=== PATIENT | male | born 1965 | race Caucasian/White ===

== ENCOUNTER 2021-01-10 04:58 | Inpatient (IN) | payer BC ==
[2021-01-10] MEDS ORDERED: Lactated Ringers 1,000 ML IV SCH (08:00)
[2021-01-10] MEDS ORDERED: Albuterol/Ipratropium 3.0-0.5 MG/3 ML Neb Soln NEB PRN (08:00)
[2021-01-10] MEDS ORDERED: Morphine 2 MG/ML SYRINGE IVPUSH PRN (08:00)
[2021-01-10] MEDS ORDERED: Ondansetron 4 MG/2 ML SDV IVPUSH PRN (08:00)
[2021-01-10] MEDS ORDERED: Acetaminophen 325 MG Tab PO PRN (08:00)
[2021-01-10] MEDS ORDERED: Sodium Chloride 0.9% 2.5 ML Syringe FLUSH PRN (08:00)
[2021-01-10] MEDS ORDERED: 50% Dextrose in Water 50 ML Syringe IVPUSH PRN (08:05)
[2021-01-10] MEDS ORDERED: Glucagon,Human Recombinant 1 MG Vial IM PRN (08:05)
--- NOTE | 2021-01-10 08:13 | PCM.HP.2 ---
H&P History of Present Illness - General Date of Service: 01/10/21 Admit Problem/Dx: Admission Diagnosis/Problem Admission Diagnosis/Problem LLE cellulitis Source of Information: Patient History Limitations: Reports: No Limitations - History of Present Illness Initial Comments - Free Text/Narative: This 56-year-old male with past medical history of CHF, MS, CAD, sleep apnea with CPAP, type 2 diabetes and morbid obesity presented to the hospital in [place] with acute onset of fevers chills body aches and generalized fatigue. He rated pain 8 out of 10. He had a dental extraction performed on 01/04/2021. Patient reports he started having fevers chills and body aches in 01/09/2021 around 6:00 in the evening. He sought out immediate medical evaluation as he has had this in the past when he develops cellulitis. He reports he did not notice any increased redness or swelling to his lower extremities. He does report that he is supposed to see infectious disease doctor Dr. Delgado at [facility] tomorrow due to recurrent cellulitis in his left lower extremity. He denies any recent injury to left lower extremity. Denies any other skin concerns or open sores. He denies any chest pain or shortness of breath. No abdominal pain. Does report mild fevers and chills at home fevers have been subjective has not checked his temperature. He denies any nausea vomiting. He reports he is tired as he has not slept since last evening. He reports he has been eating and drinking fine at home. Denies any abdominal pain. No urinary concerns. He denies any alcohol use recreational drug use or tobacco use. In the ER in [place] mild leukocytosis noted 11,000 hemoglobin 15.6 hematocrit 47.3. Platelet count 172,000. Neutrophil count 89.5. Sodium 141 potassium 3.9 BUN 29 creatinine 1.6 which appears to be patient's baseline. Lactic acid 1.7 troponin negative UA negative Covid and influenza swab negative. Chest x-ray report pending. EKG normal sinus rhythm heart rate 99 no change from previous EKG on 08/17/2020. No acute ischemic changes noted. Patient was treated with approximately 3 L of LR IV fluids blood cultures obtained and he was treated empirically with Rocephin. Due to bed availability he was unable to be admitted in [place] patient denied transfer to other facilities but was willing to come to [place]. Patient transferred here via EMS. Upon arrival to our unit blood pressure stable 122/77 heart rate 9692% on room air 18 respirations. Hypotension noted in [place] blood pressure 99/55 map of 69. - Related Data Allergies/Adverse Reactions: Allergies Allergy/AdvReac Type Severity Reaction Status Date / Time No Known Allergies Allergy Verified 11/07/20 00:38 MDT Home Medications: Home Meds Dulaglutide [Trulicity] 0.5 ml SQ WEEKLY 11/20/19 [History] Empagliflozin [Jardiance] 1 tab PO DAILY 11/20/19 [History] Fenofibric Acid (Choline) [Fenofibric Acid] 1 cap PO DAILY 11/20/19 [History] Metoprolol Tartrate 25 mg PO DAILY 11/20/19 [History] Pantoprazole [ProTONIX] 40 mg PO DAILY 11/20/19 [History] SUMAtriptan [Imitrex] 50 mg PO DAILY PRN 11/20/19 [History] atorvaSTATin [Lipitor] 20 mg PO BEDTIME 11/20/19 [History] metFORMIN HCl [Metformin HCl] 1,000 mg PO BID 11/20/19 [History] Furosemide 2 tab PO BID 08/17/20 [History] Multivitamin 1 tab PO DAILY 08/17/20 [History] Ubidecarenone/Vitamin E [Co Q-10 50 MG Softgel] 1 cap PO DAILY 08/17/20 [History] Hydrocodone/Acetaminophen [Hydrocodone-Acetamin 5-325 mg] 1 each PO Q6HR PRN #10 tab 11/07/20 [Rx] Past Medical History HEENT History: Reports: Allergic Rhinitis Cardiovascular History: Reports: CAD, Heart Failure, High Cholesterol Other Cardiovascular History: NSTEMI, Hypokalemia Respiratory History: Reports: Sleep Apnea Other Respiratory History: Uses CPAP Gastrointestinal History: Reports: GERD Other Gastrointestinal History: Epigastric pain, Right upper quadrant pain Genitourinary History: Reports: Chronic Renal Insuffiency Other Genitourinary History: Chronic Kidney Disease III COMPOUNDING SCALER History: Reports: None Musculoskeletal History: Reports: Osteoarthritis, Other (See Below) Other Musculoskeletal History: Chronic knee pain, left plantar fascitis, left carpal tunnel syndrome Neurological History: Reports: Migraines Psychiatric History: Reports: None Endocrine/Metabolic History: Reports: Diabetes, Type II, Obesity/BMI 30+ Hematologic History: Reports: None Immunologic History: Reports: None Oncologic (Cancer) History: Reports: None Dermatologic History: Reports: Cellulitis Other Dermatologic History: Rash - Infectious Disease History Infectious Disease History: Reports: Chicken Pox - Past Surgical History Head Surgeries/Procedures: Reports: None HEENT Surgical History: Reports: None Cardiovascular Surgical History: Reports: None Respiratory Surgical History: Reports: None GI Surgical History: Reports: EGD Endocrine Surgical History: Reports: None Neurological Surgical History: Reports: None Musculoskeletal Surgical History: Reports: None Oncologic Surgical History: Reports: None Social & Family History - Family History Family Medical History: No Pertinent Family History - Caffeine Use Caffeine Use: Reports: Coffee H&P Review of Systems - Review of Systems: Review Of Systems: See Below General: Reports: Fever, Chills, Malaise, Weakness HEENT: Reports: No Symptoms. Denies: Headaches, Sinus Congestion, Vertigo Pulmonary: Reports: No Symptoms. Denies: Shortness of Breath Cardiovascular: Reports: Edema (Lateral lower extremities feels they are at baseline.). Denies: Chest Pain Gastrointestinal: Reports: No Symptoms. Denies: Abdominal Pain, Black Stool, Bloody Stool, Nausea, Vomiting Genitourinary: Reports: No Symptoms. Denies: Dysuria, Frequency, Burning Musculoskeletal: Reports: Back Pain (Chronic). Denies: Neck Pain Skin: Reports: No Symptoms. Denies: Erythema Psychiatric: Reports: No Symptoms Neurological: Reports: No Symptoms Hematologic/Lymphatic: Reports: No Symptoms Immunologic: Reports: No Symptoms Exam - Exam Exam: See Below - Vital Signs Vital Signs: Last Vital Signs Temp 99.9 F 01/10/21 07:30 Pulse 96 01/10/21 07:30 Resp 18 01/10/21 07:30 BP 122/77 01/10/21 07:30 Pulse Ox 92 L 01/10/21 07:30 - Exam General: Alert, Oriented, Cooperative HEENT: Conjunctiva Clear, Posterior Pharynx Clear. No: Mucosa Moist & [place] (Dry) Lungs: Clear to Auscultation, Normal Respiratory Effort Cardiovascular: Regular Rate, Regular Rhythm, Normal S1, Normal S2 GI/Abdominal Exam: Normal Bowel Sounds, Soft, Non-Tender Back Exam: Normal Inspection, Full Range of Motion Extremities: Normal Inspection, Normal Range of Motion, Non-Tender, Pedal Edema (+3 pitting edema bilateral lower extremities which patient reports is baseline typically wears [place]ie bandages for compression.) Skin: Warm, Dry, Other (Erythema noted to left lower extremity excluding knee but including entire nicolas posterior and anterior including foot. He is able to move his leg appropriately no joint pain of knee or ankle. Patient feels the redness is not as bad as it usually is when he has cellulitis. No open sores or wounds ) Neuro Extensive - Mental Status: Alert, Oriented x3, Normal Mood/Affect Psychiatric: Alert, Normal Affect, Normal Mood Sepsis Event Note - Evaluation Sepsis Screening Result: Possible Sepsis Risk Current Stage of Sepsis: Ruled Out Reason for Ruling Out Sepsis: Patient treated appropriately with 3 L IV fluids prior to arrival. Blood pressure improved with maps well above 65, lactic acid normal. Possible Source of Sepsis: Skin/Soft Tissue - Focused Exam Vital Signs: Vital Signs Temp Pulse Resp BP Pulse Ox 01/10/21 07:30 99.9 F 96 18 122/77 92 L Date Exam was Performed: 01/10/21 Time Exam was Performed: 08:15 - Problem List (1) Cellulitis of left anterior lower leg SNOMED Code(s): 776421368 ICD Code: L03.116 - CELLULITIS OF LEFT LOWER LIMB Status: Acute Current Visit: No (2) History of myocardial infarction SNOMED Code(s): 628323305 ICD Code: I25.2 - OLD MYOCARDIAL INFARCTION Status: Chronic Current Visit: Yes (3) CHF (congestive heart failure) SNOMED Code(s): 91789202 ICD Code: I50.9 - HEART FAILURE, UNSPECIFIED Status: Chronic Current Visit: Yes (4) IGOR on CPAP SNOMED Code(s): 13132143 ICD Code: G47.33 - OBSTRUCTIVE SLEEP APNEA (ADULT) (PEDIATRIC); Z99.89 - DEPENDENCE ON OTHER ENABLING MACHINES AND DEVICES Status: Chronic Current Visit: Yes (5) Hypertension SNOMED Code(s): 23775919 ICD Code: I10 - ESSENTIAL (PRIMARY) HYPERTENSION Status: Chronic Current Visit: Yes (6) Hyperlipidemia SNOMED Code(s): 64248019 ICD Code: E78.5 - HYPERLIPIDEMIA, UNSPECIFIED Status: Chronic Current Visit: Yes (7) DM type 2 (diabetes mellitus, type 2) SNOMED Code(s): 85955708 ICD Code: E11.9 - TYPE 2 DIABETES MELLITUS WITHOUT COMPLICATIONS Status: Chronic Current Visit: Yes Qualifiers: Diabetes mellitus intermediate manager insulin use: without care home use Diabetes mellitus complication status: with skin complications Diabetes mellitus complication detail: with dermatitis Qualified Code(s): E11.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 (8) Chronic back pain SNOMED Code(s): 144188738 ICD Code: M54.9 - DORSALGIA, UNSPECIFIED; G89.29 - OTHER CHRONIC PAIN Status: Chronic Current Visit: Yes (9) Chronic GERD SNOMED Code(s): 699247521, 542827724 ICD Code: K21.9 - GASTRO-ESOPHAGEAL REFLUX DISEASE WITHOUT ESOPHAGITIS Status: Chronic Priority: Medium Current Visit: No (10) Morbid obesity with BMI of 50.0-59.9, adult SNOMED Code(s): 347441137, 64969204839001 ICD Code: E66.01 - MORBID (SEVERE) OBESITY DUE TO EXCESS CALORIES; Z68.43 - BODY MASS INDEX [BMI] 50.0-59.9, ADULT Status: Chronic Current Visit: No Problem List Initiated/Reviewed/Updated: Yes Orders Last 24hrs: Active Orders 24 hr Category Date Time Status Patient Status [ADT] Routine ADT 01/10/21 08:00 Active Blood Glucose Check, Bedside [RC] TIDMEALS Care 01/10/21 08:00 Active Intake and Output [RC] QSHIFT Care 01/10/21 08:03 Active Oxygen Therapy [RC] PRN Care 01/10/21 08:00 Active RT Aerosol Therapy [RC] ASDIRECTED Care 01/10/21 08:04 Active Up With Assistance [RC] ASDIRECTED Care 01/10/21 08:00 Active VTE/DVT Education [RC] PER UNIT ROUTINE Care 01/10/21 08:00 Active Vital Signs [RC] Q4H Care 01/10/21 08:00 Active [employer] Diet [DIET] Diet 01/10/21 Breakfast Active BASIC METABOLIC PANEL,BMP [CHEM] AM Lab 01/11/21 05:11 Ordered BASIC METABOLIC PANEL,BMP [CHEM] AM Lab 01/12/21 05:11 Ordered BASIC METABOLIC PANEL,BMP [CHEM] AM Lab 01/13/21 05:11 Ordered CBC WITH AUTO DIFF [HEME] AM Lab 01/11/21 05:11 Ordered CBC WITH AUTO DIFF [HEME] AM Lab 01/12/21 05:11 Ordered CBC WITH AUTO DIFF [HEME] AM Lab 01/13/21 05:11 Ordered MAGNESIUM [CHEM] AM Lab 01/11/21 05:11 Ordered MAGNESIUM [CHEM] AM Lab 01/12/21 05:11 Ordered MAGNESIUM [CHEM] AM Lab 01/13/21 05:11 Ordered Acetaminophen [TylenoL] Med 01/10/21 08:00 Ordered 650 mg PO Q4H PRN Albuterol/Ipratropium [DuoNeb 3.0-0.5 MG/3 ML] Med 01/10/21 08:00 Ordered 3 ml NEB Q4HRRT PRN Dextrose 50% in Water Med 01/10/21 08:05 Ordered 50 ml IVPUSH ASDIRECTED PRN Glucagon,Human Recombinant [GlucaGen] Med 01/10/21 08:05 Ordered 1 mg IM ASDIRECTED PRN Heparin Sodium Med 01/10/21 08:00 Ordered 5,000 units SUBCUT Q8H Insulin Aspart [NovoLOG] Med 01/10/21 08:05 Ordered See Protocol SUBCUT TIDAC Lactated Ringers [Ringers, Lactated] 1,000 ml Med 01/10/21 08:00 Ordered IV Q8H Morphine Med 01/10/21 08:00 Ordered 2 mg IVPUSH Q2H PRN Ondansetron [Zofran] Med 01/10/21 08:00 Ordered 4 mg IVPUSH Q4H PRN Sodium Chloride 0.9% [Saline Flush] Med 01/10/21 08:00 Ordered 2.5 ml FLUSH ASDIRECTED PRN Saline Lock Insert [OM.PC] Routine Oth 01/10/21 08:00 Ordered Resuscitation Status Routine Resus Stat 01/10/21 08:00 Ordered Medication Orders Acetaminophen (Acetaminophen 325 Mg Tab) 650 mg PO Q4H PRN PRN Reason: Pain (Mild 1-3)/fever Albuterol/Ipratropium (Albuterol/Ipratropium 3.0-0.5 Mg/3 Ml Neb Soln) 3 ml NEB Q4HRRT PRN PRN Reason: Shortness Of Breath/wheezing Dextrose/Water (50% Dextrose In Water 50 Ml Syringe) 50 ml IVPUSH ASDIRECTED PRN PRN Reason: Hypoglycemia Glucagon (Glucagon,Human Recombinant 1 Mg Vial) 1 mg IM ASDIRECTED PRN PRN Reason: Hypoglycemia Heparin Sodium (Porcine) (Heparin Sodium 5,000 Units/Ml Vial) 5,[address] [facility] Lactated Ringer's (Ringers, Lactated) 1,000 mls @ 125 mls/hr IV Q8H ADRIAN Insulin Aspart (Insulin Aspart 100 Units/Ml 3 Ml Pen) 0 unit SUBCUT TIDAC ADRIAN; Protocol Morphine Sulfate (Morphine 10 Mg/Ml Syringe) 2 mg IVPUSH Q2H PRN PRN Reason: Pain (severe 7-10) Stop: 01/11/21 08:03 Ondansetron HCl (Ondansetron 4 Mg/2 Ml Sdv) 4 mg IVPUSH Q4H PRN PRN Reason: Nausea Sodium Chloride (Sodium Chloride 0.9% 2.5 Ml Syringe) 2.5 ml FLUSH ASDIRECTED PRN PRN Reason: Keep Vein Open Assessment/Plan Comment:: This 56-year-old male admitted with cellulitis left lower extremity 1. Left lower extremity cellulitis Given Rocephin in [place], due to weight will stop Rocephin and give daptomycin to properly cover for strep and staph including MRSA Elevate leg Continue Davie wraps during the day off at night checking vascular checks twice a day. -Blood cultures obtained in [place] are pending -Reschedule outpatient infectious disease appointment for recurrent cellulitis -Focused sepsis exam performed patient not septic at this time. Patient was treated with 3 L of fluid prior to her arrival in our facility blood pressure stable at this time. Lactic acid within normal limits and blood pressures remained with maps above 65. 2. DM type II ADA diet NovoLog sliding scale with meals Most recent A1c 7.6, well-controlled on oral antidiabetic medications. 3. HTN, CAD, CHF, IGOR Strict I's and O's, low-sodium diet, daily weights Hold Lasix today due to hypotension noted in [place] and in transfer. Blood pressures have been stable since admission. Patient was treated with over 3 L of fluid prior to arrival to our facility -Monitor on telemetry -Chest x-ray stable from previous admissions. -Obtain echo due to recent tooth extraction and infection but infection likely secondary to left lower extremity cellulitis - Continue CPAP, attempting to having family bring his in. VTE prophylaxis: Heparin GI prophylaxis: Protonix CODE STATUS: Full code Dispo 3 to 4 days pending improvement and culture results.
[2021-01-10] MEDS ORDERED: DAPTOmycin 500 MG Vial IV SCH (09:30)
[2021-01-10] MEDS: Insulin Aspart 100 Units/ML 3 ML Pen SUBCUT SCH ×3 (10:43→18:34)
[2021-01-10] MEDS: Heparin Sodium 5,000 Units/ML Vial SUBCUT SCH ×2 (11:06→16:24)
--- NOTE | 2021-01-10 11:10 | US ---
Examination: Duplex ultrasound of bilateral lower extremity veins Indication: Lower extremity edema Technique: Maciel scale, color Doppler, and spectral Doppler images of bilateral lower extremity veins were obtained. Compression maneuvers were performed. Comparison: None. Findings: Bilateral common femoral, femoral, popliteal, and posterior tibial veins are patent and compressible. Impression: No evidence of deep vein thrombosis in bilateral lower extremities. Dictated by Ryan Welch MD @ 01/10/2021 11:08:[address] Ryan Welch @ Jan 10 2021 11:08AM
[2021-01-10] MEDS: DAPTOMYCIN IV SCH (11:12)
[2021-01-10] MEDS: SODIUM CHLORIDE 0.9% IV SCH (11:12)
[2021-01-10 12:18] LABS: HEMOGLOBIN A1C 7.6 %
[2021-01-10] MEDS ORDERED: Acetaminophen/HYDROcodone 325-10 MG Tab PO PRN (16:23)
[2021-01-10] MEDS: atorvaSTATin 20 MG Tab PO SCH (20:53)
[2021-01-11] MEDS: Heparin Sodium 5,000 Units/ML Vial SUBCUT SCH ×3 (01:12→15:47)
[2021-01-11] MEDS: Acetaminophen/HYDROcodone 325-5 MG Tab PO PRN ×3 (05:45→21:52)
[2021-01-11 07:25] LABS: CARBON DIOXIDE,CO2 26.3 mmol/L (21.0-32.0); POTASSIUM,K 3.8 mmol/L (3.5-5.1)
[2021-01-11] MEDS: Pantoprazole 40 MG Tab.CR PO SCH (07:51)
[2021-01-11] MEDS: Insulin Aspart 100 Units/ML 3 ML Pen SUBCUT SCH ×3 (07:52→16:46)
--- NOTE | 2021-01-11 07:52 | PCM.PN ---
- General Info Date of Service: 01/11/21 Admission Dx/Problem (Free Text): Admission Diagnosis/Problem Admission Diagnosis/Problem LLE cellulitis Subjective Update: Feeling much improved today, denies chest pain or SOB. No further having fevers, but reports he is now sweating it out and knows he is improving. Reports leg feels fine and never got red like it has in the past. Asking for shower today. Functional Status: Reports: Pain Controlled, Tolerating Diet, Ambulating, Urinating - Review of Systems General: Reports: No Symptoms. Denies: Weakness, Fatigue, Malaise HEENT: Reports: No Symptoms. Denies: Headaches, Sore Throat, Visual Changes Pulmonary: Reports: No Symptoms. Denies: Shortness of Breath Cardiovascular: Reports: No Symptoms. Denies: Chest Pain Gastrointestinal: Reports: No Symptoms. Denies: Abdominal Pain, Nausea, Vomiting Genitourinary: Reports: No Symptoms. Denies: Dysuria, Frequency Musculoskeletal: Reports: No Symptoms Skin: Reports: Other (redness to L lower leg) Neurological: Reports: No Symptoms Psychiatric: Reports: No Symptoms - Patient Data Vitals - Most Recent: Last Vital Signs Temp 98.7 F 01/11/21 05:42 Pulse 88 01/11/21 05:42 Resp 18 01/11/21 05:42 BP 104/56 L 01/11/21 05:42 Pulse Ox 93 L 01/11/21 05:42 Weight - Most Recent: 153.45 kg I&O - Last 24 Hours: Intake & Output 01/10/21 01/11/21 01/11/21 22:59 06:59 14:59 Intake Total 1650 400 Output Total 775 1250 Balance 875 -850 Lab Results Last 24 Hours: Laboratory Results - last 24 hr 01/10/21 01/10/21 01/10/21 Range/Units 09:06 12:00 12:00 WBC (4.0-11.0) K/uL RBC (4.50-5.90) M/uL Hgb (13.0-17.0) g/dL Hct (38.0-50.0) % MCV (80.0-98.0) fL MCH (27.0-32.0) pg MCHC (31.0-37.0) g/dL RDW Std Deviation (28.0-62.0) fl RDW Coeff of Erik (11.0-15.0) % Plt Count (150-400) K/uL MPV (7.40-12.00) fL Neut % (Auto) (48.0-80.0) % Lymph % (Auto) (16.0-40.0) % Dare % (Auto) (0.0-15.0) % Eos % (Auto) (0.0-7.0) % Baso % (Auto) (0.0-1.5) % Neut # (Auto) (1.4-5.7) K/uL Lymph # (Auto) (0.6-2.4) K/uL Dare # (Auto) (0.0-0.8) K/uL Eos # (Auto) (0.0-0.7) K/uL Baso # (Auto) (0.0-0.1) K/uL Nucleated RBC % /100WBC Nucleated RBCs # K/uL ESR 23 H (0-19) mm/hr POC Glucose 174 H (70-99) mg/dL Hemoglobin A1c (4.5 - 6.2) % C-Reactive Protein 14.60 H (0.00-0.90) mg/dL 01/10/21 01/10/21 01/10/21 Range/Units 12:00 12:13 17:31 WBC (4.0-11.0) K/uL RBC (4.50-5.90) M/uL Hgb (13.0-17.0) g/dL Hct (38.0-50.0) % MCV (80.0-98.0) fL MCH (27.0-32.0) pg MCHC (31.0-37.0) g/dL RDW Std Deviation (28.0-62.0) fl RDW Coeff of Erik (11.0-15.0) % Plt Count (150-400) K/uL MPV (7.40-12.00) fL Neut % (Auto) (48.0-80.0) % Lymph % (Auto) (16.0-40.0) % Dare % (Auto) (0.0-15.0) % Eos % (Auto) (0.0-7.0) % Baso % (Auto) (0.0-1.5) % Neut # (Auto) (1.4-5.7) K/uL Lymph # (Auto) (0.6-2.4) K/uL Dare # (Auto) (0.0-0.8) K/uL Eos # (Auto) (0.0-0.7) K/uL Baso # (Auto) (0.0-0.1) K/uL Nucleated RBC % /100WBC Nucleated RBCs # K/uL ESR (0-19) mm/hr POC Glucose 188 H 143 H (70-99) mg/dL Hemoglobin A1c 7.6 H (4.5 - 6.2) % C-Reactive Protein (0.00-0.90) mg/dL 01/11/21 01/11/21 Range/Units 06:00 07:18 WBC 7.95 (4.0-11.0) K/uL RBC 4.57 (4.50-5.90) M/uL Hgb 14.2 (13.0-17.0) g/dL Hct 41.9 (38.0-50.0) % MCV 91.7 (80.0-98.0) fL MCH 31.1 (27.0-32.0) pg MCHC 33.9 (31.0-37.0) g/dL RDW Std Deviation 49.1 (28.0-62.0) fl RDW Coeff of Erik 15 (11.0-15.0) % Plt Count 132 L (150-400) K/uL MPV 9.60 (7.40-12.00) fL Neut % (Auto) 75.3 (48.0-80.0) % Lymph % (Auto) 13.5 L (16.0-40.0) % Dare % (Auto) 9.6 (0.0-15.0) % Eos % (Auto) 1.5 (0.0-7.0) % Baso % (Auto) 0.1 (0.0-1.5) % Neut # (Auto) 6.0 H (1.4-5.7) K/uL Lymph # (Auto) 1.1 (0.6-2.4) K/uL Dare # (Auto) 0.8 (0.0-0.8) K/uL Eos # (Auto) 0.1 (0.0-0.7) K/uL Baso # (Auto) 0.0 (0.0-0.1) K/uL Nucleated RBC % 0.0 /100WBC Nucleated RBCs # 0 K/uL ESR (0-19) mm/hr POC Glucose 157 H (70-99) mg/dL Hemoglobin A1c (4.5 - 6.2) % C-Reactive Protein (0.00-0.90) mg/dL Med Orders - Current: Current Medications Acetaminophen (Acetaminophen 325 Mg Tab) 650 mg PO Q4H PRN PRN Reason: Pain (Mild 1-3)/fever Last Admin: 01/10/21 20:50 Dose: 650 mg Documented by: Hydrocodone Bitart/Acetaminophen (Acetaminophen/Hydrocodone 325-5 Mg Tab) 1 tab PO Q6HR PRN PRN Reason: Pain Last Admin: 01/11/21 05:45 Dose: 1 tab Documented by: Albuterol/Ipratropium (Albuterol/Ipratropium 3.0-0.5 Mg/3 Ml Neb Soln) 3 ml NEB Q4HRRT PRN PRN Reason: Shortness Of Breath/wheezing Atorvastatin Calcium (Atorvastatin 20 Mg Tab) 20 mg PO BEDTIME [facility] Last Admin: 01/10/21 20:53 Dose: 20 mg Documented by: Dextrose/Water (50% Dextrose In Water 50 Ml Syringe) 50 ml IVPUSH ASDIRECTED PRN PRN Reason: Hypoglycemia Glucagon (Glucagon,Human Recombinant 1 Mg Vial) 1 mg IM ASDIRECTED PRN PRN Reason: Hypoglycemia Heparin Sodium (Porcine) (Heparin Sodium 5,000 Units/Ml Vial) 5,000 units SUBCUT Q8H [facility] Last Admin: 01/11/21 01:12 Dose: 5,000 units Documented by: Daptomycin 920 mg/ Sodium (Chloride) 18.4 mls @ 552 mls/hr IV Q24H [facility] Last Admin: 01/10/21 11:12 Dose: 552 mls/hr Documented by: Insulin Aspart (Insulin Aspart 100 Units/Ml 3 Ml Pen) 0 unit SUBCUT TIDAC [facility]; Protocol Last Admin: 01/10/21 18:34 Dose: Not Given Documented by: Metoprolol Tartrate (Metoprolol Tartrate 25 Mg Tab) 25 mg PO DAILY [facility] Morphine Sulfate (Morphine 2 Mg/Ml Syringe) 2 mg IVPUSH Q2H PRN PRN Reason: Pain (severe 7-10) Stop: 01/11/21 08:03 Last Admin: 01/10/21 13:30 Dose: 2 mg Documented by: Ondansetron HCl (Ondansetron 4 Mg/2 Ml Sdv) 4 mg IVPUSH Q4H PRN PRN Reason: Nausea Pantoprazole Sodium (Pantoprazole 40 Mg Tab.Cr) 40 mg PO ACBREAKFAST [facility] Sodium Chloride (Sodium Chloride 0.9% 2.5 Ml Syringe) 2.5 ml FLUSH ASDIRECTED PRN PRN Reason: Keep Vein Open Discontinued Medications Hydrocodone Bitart/Acetaminophen (Acetaminophen/Hydrocodone 325-10 Mg Tab) 1 tab PO Q6HR PRN PRN Reason: Pain Lactated Ringer's (Ringers, Lactated) 1,000 mls @ 125 mls/hr IV Q8H [facility] Last Admin: 01/10/21 12:04 Dose: Not Given Documented by: - Exam Quality Assessment: DVT Prophylaxis. No: Supplemental Oxygen General: Alert, Oriented, Cooperative, No Acute Distress Neck: Supple Lungs: Clear to Auscultation, Normal Respiratory Effort Cardiovascular: Regular Rate, Regular Rhythm GI/Abdominal Exam: Normal Bowel Sounds, Soft, Non-Tender, Other (obese abdomen) Extremities: Non-Tender, Pedal Edema (+3 pitting edema to BLE, stable) Skin: Warm, Dry Wound/Incisions: Erythema Improving (improved erythema to LLE, warm also improved. NO open areas and no drainage. No bullae. ) Neurological: No New Focal Deficit Psy/Mental Status: Alert, Normal Affect, Normal Mood - Patient Data Lab Results Last 24 hrs: Laboratory Results - last 24 hr 01/10/21 01/10/21 01/10/21 Range/Units 09:06 12:00 12:00 WBC (4.0-11.0) K/uL RBC (4.50-5.90) M/uL Hgb (13.0-17.0) g/dL Hct (38.0-50.0) % MCV (80.0-98.0) fL MCH (27.0-32.0) pg MCHC (31.0-37.0) g/dL RDW Std Deviation (28.0-62.0) fl RDW Coeff of Erik (11.0-15.0) % Plt Count (150-400) K/uL MPV (7.40-12.00) fL Neut % (Auto) (48.0-80.0) % Lymph % (Auto) (16.0-40.0) % Dare % (Auto) (0.0-15.0) % Eos % (Auto) (0.0-7.0) % Baso % (Auto) (0.0-1.5) % Neut # (Auto) (1.4-5.7) K/uL Lymph # (Auto) (0.6-2.4) K/uL Dare # (Auto) (0.0-0.8) K/uL Eos # (Auto) (0.0-0.7) K/uL Baso # (Auto) (0.0-0.1) K/uL Nucleated RBC % /100WBC Nucleated RBCs # K/uL ESR 23 H (0-19) mm/hr POC Glucose 174 H (70-99) mg/dL Hemoglobin A1c (4.5 - 6.2) % C-Reactive Protein 14.60 H (0.00-0.90) mg/dL 01/10/21 01/10/21 01/10/21 Range/Units 12:00 12:13 17:31 WBC (4.0-11.0) K/uL RBC (4.50-5.90) M/uL Hgb (13.0-17.0) g/dL Hct (38.0-50.0) % MCV (80.0-98.0) fL MCH (27.0-32.0) pg MCHC (31.0-37.0) g/dL RDW Std Deviation (28.0-62.0) fl RDW Coeff of Erik (11.0-15.0) % Plt Count (150-400) K/uL MPV (7.40-12.00) fL Neut % (Auto) (48.0-80.0) % Lymph % (Auto) (16.0-40.0) % Dare % (Auto) (0.0-15.0) % Eos % (Auto) (0.0-7.0) % Baso % (Auto) (0.0-1.5) % Neut # (Auto) (1.4-5.7) K/uL Lymph # (Auto) (0.6-2.4) K/uL Dare # (Auto) (0.0-0.8) K/uL Eos # (Auto) (0.0-0.7) K/uL Baso # (Auto) (0.0-0.1) K/uL Nucleated RBC % /100WBC Nucleated RBCs # K/uL ESR (0-19) mm/hr POC Glucose 188 H 143 H (70-99) mg/dL Hemoglobin A1c 7.6 H (4.5 - 6.2) % C-Reactive Protein (0.00-0.90) mg/dL 01/11/21 01/11/21 Range/Units 06:00 07:18 WBC 7.95 (4.0-11.0) K/uL RBC 4.57 (4.50-5.90) M/uL Hgb 14.2 (13.0-17.0) g/dL Hct 41.9 (38.0-50.0) % MCV 91.7 (80.0-98.0) fL MCH 31.1 (27.0-32.0) pg MCHC 33.9 (31.0-37.0) g/dL RDW Std Deviation 49.1 (28.0-62.0) fl RDW Coeff of Erik 15 (11.0-15.0) % Plt Count 132 L (150-400) K/uL MPV 9.60 (7.40-12.00) fL Neut % (Auto) 75.3 (48.0-80.0) % Lymph % (Auto) 13.5 L (16.0-40.0) % Dare % (Auto) 9.6 (0.0-15.0) % Eos % (Auto) 1.5 (0.0-7.0) % Baso % (Auto) 0.1 (0.0-1.5) % Neut # (Auto) 6.0 H (1.4-5.7) K/uL Lymph # (Auto) 1.1 (0.6-2.4) K/uL Dare # (Auto) 0.8 (0.0-0.8) K/uL Eos # (Auto) 0.1 (0.0-0.7) K/uL Baso # (Auto) 0.0 (0.0-0.1) K/uL Nucleated RBC % 0.0 /100WBC Nucleated RBCs # 0 K/uL ESR (0-19) mm/hr POC Glucose 157 H (70-99) mg/dL Hemoglobin A1c (4.5 - 6.2) % C-Reactive Protein (0.00-0.90) mg/dL Result Diagrams: 01/11/21 06:00 01/11/21 06:00 Sepsis Event Note - Evaluation Sepsis Screening Result: No Definite Risk - Focused Exam Vital Signs: Vital Signs Temp Pulse Resp BP Pulse Ox 01/11/21 05:42 98.7 F 88 18 104/56 L 93 L 01/11/21 00:06 99 F 78 20 118/62 94 L 01/10/21 20:49 100 F 84 20 111/74 94 L - Problem List & Annotations (1) Gram-positive cocci bacteremia SNOMED Code(s): 369523692710, 282083751652 Code(s): R78.81 - BACTEREMIA Status: Acute Current Visit: Yes (2) Cellulitis of left anterior lower leg SNOMED Code(s): 781845254 Code(s): L03.116 - CELLULITIS OF LEFT LOWER LIMB Status: Acute Current Visit: No (3) History of myocardial infarction SNOMED Code(s): 579575126 Code(s): I25.2 - OLD MYOCARDIAL INFARCTION Status: Chronic Current Visit: Yes (4) CHF (congestive heart failure) SNOMED Code(s): 15882841 Code(s): I50.9 - HEART FAILURE, UNSPECIFIED Status: Chronic Current Visi t: Yes (5) IGOR on CPAP SNOMED Code(s): 50708541 Code(s): G47.33 - OBSTRUCTIVE SLEEP APNEA (ADULT) (PEDIATRIC); Z99.89 - DEPENDENCE ON OTHER ENABLING MACHINES AND DEVICES Status: Chronic Current Visit: Yes (6) Hypertension SNOMED Code(s): 61924928 Code(s): I10 - ESSENTIAL (PRIMARY) HYPERTENSION Status: Chronic Current Visit: Yes (7) Hyperlipidemia SNOMED Code(s): 00191450 Code(s): E78.5 - HYPERLIPIDEMIA, UNSPECIFIED Status: Chronic Current Visit: Yes (8) DM type 2 (diabetes mellitus, type 2) SNOMED Code(s): 91124314 Code(s): E11.9 - TYPE 2 DIABETES MELLITUS WITHOUT COMPLICATIONS Status: Chronic Current Visit: Yes Qualifiers: Diabetes mellitus longterm insulin use: without terminologist use Diabetes mellitus complication status: with skin complications Diabetes mellitus complication detail: with dermatitis Qualified Code(s): E11.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 (9) Chronic back pain SNOMED Code(s): 995871514 Code(s): M54.9 - DORSALGIA, UNSPECIFIED; G89.29 - OTHER CHRONIC PAIN Status: Chronic Current Visit: Yes (10) Chronic GERD SNOMED Code(s): 932658701, 343265390 Code(s): K21.9 - GASTRO-ESOPHAGEAL REFLUX DISEASE WITHOUT ESOPHAGITIS S tatus: Chronic Priority: Medium Current Visit: No (11) Morbid obesity with BMI of 50.0-59.9, adult SNOMED Code(s): 764783415, 84502169394118 Code(s): E66.01 - MORBID (SEVERE) OBESITY DUE TO EXCESS CALORIES; Z68.43 - BODY MASS INDEX [BMI] 50.0-59.9, ADULT Status: Chronic Current Visit: No - Problem List Review Problem List Initiated/Reviewed/Updated: Yes - My Orders Last 24 Hours: My Active Orders 01/10/21 08:00 Patient Status [ADT] Routine Blood Glucose Check, Bedside [RC] TIDMEALS Oxygen Therapy [RC] PRN Up With Assistance [RC] ASDIRECTED VTE/DVT Education [RC] PER UNIT ROUTINE Vital Signs [RC] Q4H Acetaminophen [TylenoL] 650 mg PO Q4H PRN Albuterol/Ipratropium [DuoNeb 3.0-0.5 MG/3 ML] 3 ml NEB Q4HRRT PRN Heparin Sodium 5,000 units SUBCUT Q8H Morphine 2 mg IVPUSH Q2H PRN Ondansetron [Zofran] 4 mg IVPUSH Q4H PRN Sodium Chloride 0.9% [Saline Flush] 2.5 ml FLUSH ASDIRECTED PRN Saline Lock Insert [OM.PC] Routine Resuscitation Status Routine 01/10/21 08:04 RT Aerosol Therapy [RC] ASDIRECTED 01/10/21 08:05 Dextrose 50% in Water 50 ml IVPUSH ASDIRECTED PRN Glucagon,Human Recombinant [GlucaGen] 1 mg IM ASDIRECTED PRN Insulin Aspart [NovoLOG] See Protocol SUBCUT TIDAC 01/10/21 08:44 Height and Weight [RC] DAILY Intake and Output Strict [RC] Q12H 01/10/21 08:45 Telemetry Monitoring [Cardiac Monitoring] [RC] Q8H Echo Comp wo Cont [US] Routine 01/10/21 11:19 CPAP Adult [RT BiPAP/CPAP] [RC] ASDIRECTED 01/10/21 11:22 Elevate Extremity [RC] BID AMADEO Bandage [Elastic Wrap] [OM.PC] Routine 01/10/21 16:35 Acetaminophen/HYDROcodone [[place] 325-5 MG] 1 tab PO Q6HR PRN 01/10/21 21:00 atorvaSTATin [Lipitor] 20 mg PO BEDTIME 01/11/21 06:00 BASIC METABOLIC PANEL,BMP [CHEM] AM MAGNESIUM [CHEM] AM 01/11/21 07:30 Pantoprazole [ProTONIX] 40 mg PO ACBREAKFAST 01/11/21 09:00 Metoprolol Tartrate [Lopressor] 25 mg PO DAILY 01/12/21 05:11 BASIC METABOLIC PANEL,BMP [CHEM] AM CBC WITH AUTO DIFF [HEME] AM MAGNESIUM [CHEM] AM 01/13/21 05:11 BASIC METABOLIC PANEL,BMP [CHEM] AM CBC WITH AUTO DIFF [HEME] AM MAGNESIUM [CHEM] AM - Plan Plan:: This 56-year-old male admitted with cellulitis left lower extremity 1. Left lower extremity cellulitis/Gram positive cocci bacteremia Continue Daptomycin, may need to increase dose for bacteremia, consult pharmacy Elevate leg Continue Amadeo wraps during the day off at night checking vascular checks twice a day. -Blood cultures obtained in [place] 05/22 positive with gram positive cocci in clusters, will obtain repeat BC today. and monitor. -Reschedule outpatient infectious disease appointment for recurrent cellulitis -Focused sepsis exam performed patient not septic at this time. Patient was treated with 3 L of fluid prior to her arrival in our facility blood pressure stable at this time. Lactic acid within normal limits and blood pressures remained with maps above 65. 2. DM type II ADA diet NovoLog sliding scale with meals Most recent A1c 7.6, well-controlled on oral antidiabetic medications. 3. HTN, CAD, CHF, IGOR Strict I's and O's, low-sodium diet, daily weights BP improved, consider restarting Lasix today. - Continue Metoprolol -Monitor on telemetry -Chest x-ray stable from previous admissions. -Obtain echo due to recent tooth extraction and infection but infection likely secondary to left lower extremity cellulitis - Continue CPAP, attempting to having family bring his in. VTE prophylaxis: Heparin GI prophylaxis: Protonix CODE STATUS: Full code Dispo 3 to 4 days pending improvement and culture results.
[2021-01-11] MEDS: Metoprolol Tartrate 25 MG Tab PO SCH (08:44)
[2021-01-11] MEDS: DAPTOMYCIN IV SCH (10:49)
[2021-01-11] MEDS: SODIUM CHLORIDE 0.9% IV SCH (10:49)
--- NOTE | 2021-01-11 11:03 | ECHO ---
EXAM DATE: 01/10/21 PATIENT'S AGE: 56 The ECHO report has been scanned into [facility] and can be seen in this patient's EMR (Electronic Medical Record) under the REPORTS section. The report has also been scanned into PACS. [facility]
[2021-01-11] MEDS ORDERED: Furosemide 80 MG Tab PO SCH ×2 (11:45)
[2021-01-11] MEDS: Furosemide 40 MG Tab PO SCH ×2 (12:14→20:20)
[2021-01-11] MEDS: atorvaSTATin 20 MG Tab PO SCH (20:20)
[2021-01-12] MEDS: Heparin Sodium 5,000 Units/ML Vial SUBCUT SCH ×3 (01:13→15:34)
[2021-01-12] MEDS: Acetaminophen/HYDROcodone 325-5 MG Tab PO PRN ×4 (03:57→21:15)
[2021-01-12] MEDS: Pantoprazole 40 MG Tab.CR PO SCH (06:36)
[2021-01-12 07:26] LABS: CARBON DIOXIDE,CO2 28.8 mmol/L (21.0-32.0); POTASSIUM,K 3.8 mmol/L (3.5-5.1)
--- NOTE | 2021-01-12 08:00 | PCM.PN ---
- General Info Date of Service: 01/12/21 Admission Dx/Problem (Free Text): Admission Diagnosis/Problem Admission Diagnosis/Problem LLE cellulitis Subjective Update: Patient reports he is feeling much improved today. Leg feeling less warm and swollen. Denies any chest pain shortness of breath. Denies any fevers. He has been up ambulating in his room and doing well. No concerns this morning. Very eager to go home when possible but knows he is waiting for culture results before safely being discharged. Functional Status: Reports: Pain Controlled, Tolerating Diet, Ambulating, Urinating - Review of Systems General: Reports: No Symptoms. Denies: Fatigue, Malaise HEENT: Reports: No Symptoms. Denies: Headaches, Sore Throat, Visual Changes Pulmonary: Reports: No Symptoms. Denies: Shortness of Breath Cardiovascular: Reports: No Symptoms. Denies: Chest Pain Gastrointestinal: Reports: No Symptoms. Denies: Abdominal Pain, Nausea, Vomiting Genitourinary: Reports: No Symptoms. Denies: Dysuria, Frequency, Burning Musculoskeletal: Reports: No Symptoms. Denies: Leg Pain Skin: Reports: No Symptoms Neurological: Reports: No Symptoms Psychiatric: Reports: No Symptoms - Patient Data Vitals - Most Recent: Last Vital Signs Temp 98.8 F 01/12/21 03:50 Pulse 79 01/12/21 03:50 Resp 20 01/12/21 03:50 BP 108/65 01/12/21 03:50 Pulse Ox 95 01/12/21 03:50 Weight - Most Recent: 153.949 kg I&O - Last 24 Hours: Intake & Output 01/11/21 01/12/21 01/12/21 22:59 06:59 14:59 Intake Total 1018 800 Output Total 680 825 Balance 338 -25 Lab Results Last 24 Hours: Laboratory Results - last 24 hr 01/11/21 01/11/21 01/11/21 Range/Units 06:00 11:22 16:41 WBC (4.0-11.0) K/uL RBC (4.50-5.90) M/uL Hgb (13.0-17.0) g/dL Hct (38.0-50.0) % MCV (80.0-98.0) fL MCH (27.0-32.0) pg MCHC (31.0-37.0) g/dL RDW Std Deviation (28.0-62.0) fl RDW Coeff of Erik (11.0-15.0) % Plt Count (150-400) K/uL MPV (7.40-12.00) fL Neut % (Auto) (48.0-80.0) % Lymph % (Auto) (16.0-40.0) % Gilmer % (Auto) (0.0-15.0) % Eos % (Auto) (0.0-7.0) % Baso % (Auto) (0.0-1.5) % Neut # (Auto) (1.4-5.7) K/uL Lymph # (Auto) (0.6-2.4) K/uL Gilmer # (Auto) (0.0-0.8) K/uL Eos # (Auto) (0.0-0.7) K/uL Baso # (Auto) (0.0-0.1) K/uL Nucleated RBC % /100WBC Nucleated RBCs # K/uL Sodium 137 (136-148) mmol/L Potassium 3.8 (3.5-5.1) mmol/L Chloride 102 (98-107) mmol/L Carbon Dioxide 26.3 (21.0-32.0) mmol/L BUN 22 H (7.0-18.0) mg/dL Creatinine 1.4 H (0.8-1.3) mg/dL Est Cr Clr Drug Dosing 51.90 mL/min Estimated GFR (MDRD) 52.1 ml/min Glucose 139 H (74-106) mg/dL POC Glucose 176 H 150 H (70-99) mg/dL Calcium 8.3 L (8.5-10.1) mg/dL Magnesium 1.8 (1.8-2.4) mg/dL 01/12/21 01/12/21 01/12/21 Range/Units 05:40 05:40 06:39 WBC 6.08 (4.0-11.0) K/uL RBC 4.40 L (4.50-5.90) M/uL Hgb 13.3 (13.0-17.0) g/dL Hct 40.5 (38.0-50.0) % MCV 92.0 (80.0-98.0) fL MCH 30.2 (27.0-32.0) pg MCHC 32.8 (31.0-37.0) g/dL RDW Std Deviation 49.4 (28.0-62.0) fl RDW Coeff of Erik 15 (11.0-15.0) % Plt Count 128 L (150-400) K/uL MPV 9.60 (7.40-12.00) fL Neut % (Auto) 62.8 (48.0-80.0) % Lymph % (Auto) 23.5 (16.0-40.0) % Gilmer % (Auto) 10.4 (0.0-15.0) % Eos % (Auto) 3.1 (0.0-7.0) % Baso % (Auto) 0.2 (0.0-1.5) % Neut # (Auto) 3.8 (1.4-5.7) K/uL Lymph # (Auto) 1.4 (0.6-2.4) K/uL Gilmer # (Auto) 0.6 (0.0-0.8) K/uL Eos # (Auto) 0.2 (0.0-0.7) K/uL Baso # (Auto) 0.0 (0.0-0.1) K/uL Nucleated RBC % 0.0 /100WBC Nucleated RBCs # 0 K/uL Sodium 139 (136-148) mmol/L Potassium 3.8 (3.5-5.1) mmol/L Chloride 103 (98-107) mmol/L Carbon Dioxide 28.8 (21.0-32.0) mmol/L BUN 23 H (7.0-18.0) mg/dL Creatinine 1.4 H (0.8-1.3) mg/dL Est Cr Clr Drug Dosing 51.90 mL/min Estimated GFR (MDRD) 52.1 ml/min Glucose 149 H (74-106) mg/dL POC Glucose 141 H (70-99) mg/dL Calcium 8.1 L (8.5-10.1) mg/dL Magnesium 1.9 (1.8-2.4) mg/dL Med Orders - Current: Current Medications Acetaminophen (Acetaminophen 325 Mg Tab) 650 mg PO Q4H PRN PRN Reason: Pain (Mild 1-3)/fever Last Admin: 08/23/21 20:50 Dose: 650 mg Documented by: Hydrocodone Bitart/Acetaminophen (Acetaminophen/Hydrocodone 325-5 Mg Tab) 1 tab PO Q4H PRN PRN Reason: Pain Last Admin: 01/12/21 03:57 Dose: 1 tab Documented by: Albuterol/Ipratropium (Albuterol/Ipratropium 3.0-0.5 Mg/3 Ml Neb Soln) 3 ml NEB Q4HRRT PRN PRN Reason: Shortness Of Breath/wheezing Atorvastatin Calcium (Atorvastatin 20 Mg Tab) 20 mg PO BEDTIME [facility] Last Admin: 01/11/21 20:20 Dose: 20 mg Documented by: Dextrose/Water (50% Dextrose In Water 50 Ml Syringe) 50 ml IVPUSH ASDIRECTED PRN PRN Reason: Hypoglycemia Furosemide (Furosemide 40 Mg Tab) 40 mg PO BID [facility] Last Admin: 01/11/21 20:20 Dose: 40 mg Documented by: Glucagon (Glucagon,Human Recombinant 1 Mg Vial) 1 mg IM ASDIRECTED PRN PRN Reason: Hypoglycemia Heparin Sodium (Porcine) (Heparin Sodium 5,000 Units/Ml Vial) 5,000 units SUBCUT Q8H [facility] Last Admin: 01/12/21 01:13 Dose: 5,000 units Documented by: Daptomycin 920 mg/ Sodium (Chloride) 18.4 mls @ 552 mls/hr IV Q24H [facility] Last Admin: 01/11/21 10:49 Dose: 552 mls/hr Documented by: Insulin Aspart (Insulin Aspart 100 Units/Ml 3 Ml Pen) 0 unit SUBCUT TIDAC [facility]; Protocol Last Admin: 01/11/21 16:46 Dose: 1 unit Documented by: Metoprolol Tartrate (Metoprolol Tartrate 25 Mg Tab) 25 mg PO DAILY [facility] Last Admin: 01/11/21 08:44 Dose: 25 mg Documented by: Ondansetron HCl (Ondansetron 4 Mg/2 Ml Sdv) 4 mg IVPUSH Q4H PRN PRN Reason: Nausea Pantoprazole Sodium (Pantoprazole 40 Mg Tab.Cr) 40 mg PO ACBREAKFAST [facility] Last Admin: 01/12/21 06:36 Dose: 40 mg Documented by: Sodium Chloride (Sodium Chloride 0.9% 2.5 Ml Syringe) 2.5 ml FLUSH ASDIRECTED PRN PRN Reason: Keep Vein Open Discontinued Medications Hydrocodone Bitart/Acetaminophen (Acetaminophen/Hydrocodone 325-10 Mg Tab) 1 tab PO Q6HR PRN PRN Reason: Pain Hydrocodone Bitart/Acetaminophen (Acetaminophen/Hydrocodone 325-5 Mg Tab) 1 tab PO Q6HR PRN PRN Reason: Pain Last Admin: 01/11/21 15:46 Dose: 1 tab Documented by: Furosemide (Furosemide 80 Mg Tab) 80 mg PO BIDDIURETIC ADRIAN Furosemide (Furosemide 80 Mg Tab) 80 mg PO BID ADRIAN Last Admin: 01/11/21 14:56 Dose: Not Given Documented by: Lactated Ringer's (Ringers, Lactated) 1,000 mls @ 125 mls/hr IV Q8H ADRIAN Last Admin: 01/10/21 12:04 Dose: Not Given Documented by: Morphine Sulfate (Morphine 2 Mg/Ml Syringe) 2 mg IVPUSH Q2H PRN PRN Reason: Pain (severe 7-10) Stop: 01/11/21 08:03 Last Admin: 01/10/21 13:30 Dose: 2 mg Documented by: - Exam Quality Assessment: DVT Prophylaxis. No: Supplemental Oxygen General: Alert, Oriented, Cooperative, No Acute Distress HEENT: Pupils Equal Neck: Supple Lungs: Clear to Auscultation, Normal Respiratory Effort Cardiovascular: Regular Rate, Regular Rhythm, No Murmurs GI/Abdominal Exam: Normal Bowel Sounds, Soft, Non-Tender Extremities: Normal Inspection, Normal Range of Motion, Non-Tender, Pedal Edema Skin: Warm, Dry Wound/Incisions: No Drainage, Erythema Improving Neurological: No New Focal Deficit Psy/Mental Status: Alert, Normal Affect, Normal Mood - Patient Data Lab Results Last 24 hrs: Laboratory Results - last 24 hr 01/11/21 01/11/21 01/11/21 Range/Units 06:00 11:22 16:41 WBC (4.0-11.0) K/uL RBC (4.50-5.90) M/uL Hgb (13.0-17.0) g/dL Hct (38.0-50.0) % MCV (80.0-98.0) fL MCH (27.0-32.0) pg MCHC (31.0-37.0) g/dL RDW Std Deviation (28.0-62.0) fl RDW Coeff of Erik (11.0-15.0) % Plt Count (150-400) K/uL MPV (7.40-12.00) fL Neut % (Auto) (48.0-80.0) % Lymph % (Auto) (16.0-40.0) % Gilmer % (Auto) (0.0-15.0) % Eos % (Auto) (0.0-7.0) % Baso % (Auto) (0.0-1.5) % Neut # (Auto) (1.4-5.7) K/uL Lymph # (Auto) (0.6-2.4) K/uL Gilmer # (Auto) (0.0-0.8) K/uL Eos # (Auto) (0.0-0.7) K/uL Baso # (Auto) (0.0-0.1) K/uL Nucleated RBC % /100WBC Nucleated RBCs # K/uL Sodium 137 (136-148) mmol/L Potassium 3.8 (3.5-5.1) mmol/L Chloride 102 (98-107) mmol/L Carbon Dioxide 26.3 (21.0-32.0) mmol/L BUN 22 H (7.0-18.0) mg/dL Creatinine 1.4 H (0.8-1.3) mg/dL Est Cr Clr Drug Dosing 51.90 mL/min Estimated GFR (MDRD) 52.1 ml/min Glucose 139 H (74-106) mg/dL POC Glucose 176 H 150 H (70-99) mg/dL Calcium 8.3 L (8.5-10.1) mg/dL Magnesium 1.8 (1.8-2.4) mg/dL 01/12/21 01/12/21 01/12/21 Range/Units 05:40 05:40 06:39 WBC 6.08 (4.0-11.0) K/uL RBC 4.40 L (4.50-5.90) M/uL Hgb 13.3 (13.0-17.0) g/dL Hct 40.5 (38.0-50.0) % MCV 92.0 (80.0-98.0) fL MCH 30.2 (27.0-32.0) pg MCHC 32.8 (31.0-37.0) g/dL RDW Std Deviation 49.4 (28.0-62.0) fl RDW Coeff of Erik 15 (11.0-15.0) % Plt Count 128 L (150-400) K/uL MPV 9.60 (7.40-12.00) fL Neut % (Auto) 62.8 (48.0-80.0) % Lymph % (Auto) 23.5 (16.0-40.0) % Gilmer % (Auto) 10.4 (0.0-15.0) % Eos % (Auto) 3.1 (0.0-7.0) % Baso % (Auto) 0.2 (0.0-1.5) % Neut # (Auto) 3.8 (1.4-5.7) K/uL Lymph # (Auto) 1.4 (0.6-2.4) K/uL Gilmer # (Auto) 0.6 (0.0-0.8) K/uL Eos # (Auto) 0.2 (0.0-0.7) K/uL Baso # (Auto) 0.0 (0.0-0.1) K/uL Nucleated RBC % 0.0 /100WBC Nucleated RBCs # 0 K/uL Sodium 139 (136-148) mmol/L Potassium 3.8 (3.5-5.1) mmol/L Chloride 103 (98-107) mmol/L Carbon Dioxide 28.8 (21.0-32.0) mmol/L BUN 23 H (7.0-18.0) mg/dL Creatinine 1.4 H (0.8-1.3) mg/dL Est Cr Clr Drug Dosing 51.90 mL/min Estimated GFR (MDRD) 52.1 ml/min Glucose 149 H (74-106) mg/dL POC Glucose 141 H (70-99) mg/dL Calcium 8.1 L (8.5-10.1) mg/dL Magnesium 1.9 (1.8-2.4) mg/dL Result Diagrams: 01/12/21 05:40 01/12/21 05:40 Sepsis Event Note - Evaluation Sepsis Screening Result: No Definite Risk - Focused Exam Vital Signs: Vital Signs Temp Pulse Resp BP Pulse Ox 01/12/21 03:50 98.8 F 79 20 108/65 95 01/12/21 01:10 98.4 F 77 20 110/62 95 - Problem List & Annotations (1) Gram-positive cocci bacteremia SNOMED Code(s): 892407695487, 790657059699 Code(s): R78.81 - BACTEREMIA Status: Acute Current Visit: Yes (2) Cellulitis of left anterior lower leg SNOMED Code(s): 924260800 Code(s): L03.116 - CELLULITIS OF LEFT LOWER LIMB Status: Acute Current Visit: No (3) History of myocardial infarction SNOMED Code(s): 725480794 Code(s): I25.2 - OLD MYOCARDIAL INFARCTION Status: Chronic Current Visit: Yes (4) CHF (congestive heart failure) SNOMED Code(s): 58284640 Code(s): I50.9 - HEART FAILURE, UNSPECIFIED Status: Chronic Current Visit: Yes (5) IGOR on CPAP SNOMED Code(s): 77124234 Code(s): G47.33 - OBSTRUCTIVE SLEEP APNEA (ADULT) (PEDIATRIC); Z99.89 - DEPENDENCE ON OTHER ENABLING MACHINES AND DEVICES Status: Chronic Current Visit: Yes (6) Hypertension SNOMED Code(s): 05037827 Code(s): I10 - ESSENTIAL (PRIMARY) HYPERTENSION Status: Chronic Current Visit: Yes (7) Hyperlipidemia SNOMED Code(s): 13699743 Code(s): E78.5 - HYPERLIPIDEMIA, UNSPECIFIED Status: Chronic Current Visit: Yes (8) DM type 2 (diabetes mellitus, type 2) SNOMED Code(s): 29441553 Code(s): E11.9 - TYPE 2 DIABETES MELLITUS WITHOUT COMPLICATIONS Status: Chronic Current Visit: Yes Qualifiers: Diabetes mellitus nursing home insulin use: without nursing home use Diabetes mellitus complication status: with skin complications Diabetes mellitus complication detail: with dermatitis Qualified Code(s): E11.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 (9) Chronic back pain SNOMED Code(s): 416248001 Code(s): M54.9 - DORSALGIA, UNSPECIFIED; G89.29 - OTHER CHRONIC PAIN Status: Chronic Current Visit: Yes (10) Chronic GERD SNOMED Code(s): 447883629, 293430683 Code(s): K21.9 - GASTRO-ESOPHAGEAL REFLUX DISEASE WITHOUT ESOPHAGITIS Status: Chronic Priority: Medium Current Visit: No (11) Morbid obesity with BMI of 50.0-59.9, adult SNOMED Code(s): 889499657, 50508004889706 Code(s): E66.01 - MORBID (SEVERE) OBESITY DUE TO EXCESS CALORIES; Z68.43 - BODY MASS INDEX [BMI] 50.0-59.9, ADULT Status: Chronic Current Visit: No - Problem List Review Problem List Initiated/Reviewed/Updated: Yes - My Orders Last 24 Hours: My Active Orders 01/11/21 07:30 Pantoprazole [ProTONIX] 40 mg PO ACBREAKFAST 01/11/21 08:38 May Shower [RC] ASDIRECTED 01/11/21 09:00 Metoprolol Tartrate [Lopressor] 25 mg PO DAILY 01/11/21 09:41 Blood Culture x2 Reflex Set [OM.PC] Stat 01/11/21 10:00 CULTURE BLOOD [BC] Stat 01/11/21 10:10 CULTURE BLOOD [BC] Stat 01/11/21 12:00 Furosemide [Lasix] 40 mg PO BID 01/13/21 05:11 BASIC METABOLIC PANEL,BMP [CHEM] AM CBC WITH AUTO DIFF [HEME] AM MAGNESIUM [CHEM] AM - Plan Plan:: This 56-year-old male admitted with cellulitis left lower extremity 1. Left lower extremity cellulitis/staph epi bacteremia Clinically patient improving leg appears to be less erythematous and patient status improved. - Continue Daptomycin, patient at max dose Elevate leg Continue [place] wraps during the day off at night checking vascular checks twice a day. -Blood cultures obtained in [facility]4 positive with staph epidermidis resistant to oxacillin continue to await CED. -Repeat blood cultures in [place] have been negative x1 day -Reschedule outpatient infectious disease appointment for recurrent cellulitis 2. DM type II ADA diet NovoLog sliding scale with meals Most recent A1c 7.6, well-controlled on oral antidiabetic medications. 3. HTN, CAD, CHF, IGOR Strict I's and O's, low-sodium diet, daily weights BP improved, consider restarting Lasix today. - Continue Metoprolol and Lasix 40 mg twice daily -Monitor on telemetry -Chest x-ray stable from previous admissions. -Echo pending - Continue CPAP, attempting to having family bring his in. VTE prophylaxis: Heparin GI prophylaxis: Protonix CODE STATUS: Full code Dispo 3 to 4 days pending improvement and culture results.
[2021-01-12] MEDS: Insulin Aspart 100 Units/ML 3 ML Pen SUBCUT SCH ×3 (09:43→17:26)
[2021-01-12] MEDS: Metoprolol Tartrate 25 MG Tab PO SCH (09:44)
[2021-01-12] MEDS: Furosemide 40 MG Tab PO SCH ×2 (09:44→21:15)
[2021-01-12] MEDS: DAPTOMYCIN IV SCH (11:35)
[2021-01-12] MEDS: SODIUM CHLORIDE 0.9% IV SCH (11:35)
[2021-01-12] MEDS: atorvaSTATin 20 MG Tab PO SCH (21:15)
[2021-01-13] MEDS: Heparin Sodium 5,000 Units/ML Vial SUBCUT SCH ×3 (00:10→15:03)
[2021-01-13] MEDS: Acetaminophen/HYDROcodone 325-5 MG Tab PO PRN ×4 (04:43→20:32)
[2021-01-13 06:03] LABS: CARBON DIOXIDE,CO2 28.1 mmol/L (21.0-32.0); POTASSIUM,K 3.8 mmol/L (3.5-5.1)
[2021-01-13] MEDS: Pantoprazole 40 MG Tab.CR PO SCH (06:33)
[2021-01-13] MEDS: Furosemide 40 MG Tab PO SCH ×2 (08:34→20:31)
[2021-01-13] MEDS: Metoprolol Tartrate 25 MG Tab PO SCH (08:35)
[2021-01-13] MEDS: Insulin Aspart 100 Units/ML 3 ML Pen SUBCUT SCH ×3 (08:40→17:22)
--- NOTE | 2021-01-13 10:03 | PCM.PN ---
- General Info Date of Service: 01/13/21 Admission Dx/Problem (Free Text): Admission Diagnosis/Problem Admission Diagnosis/Problem LLE cellulitis Subjective Update: Continues to feel significantly improved today has been up to shower this morning. Redness to leg has improved significantly. No fevers or chills. Denies any chest pain or shortness of breath. Eager to discharge home able. Functional Status: Reports: Pain Controlled, Tolerating Diet, Ambulating, Urinating - Review of Systems General: Reports: No Symptoms. Denies: Fatigue, Malaise Pulmonary: Reports: No Symptoms. Denies: Shortness of Breath Cardiovascular: Reports: No Symptoms. Denies: Chest Pain Gastrointestinal: Reports: No Symptoms. Denies: Abdominal Pain, Nausea, Vomiting Genitourinary: Reports: No Symptoms. Denies: Dysuria, Frequency Musculoskeletal: Reports: No Symptoms Skin: Reports: Other (Redness improving to left leg) Neurological: Reports: No Symptoms Psychiatric: Reports: No Symptoms - Patient Data Vitals - Most Recent: Last Vital Signs Temp 98.4 F 01/13/21 07:52 Pulse 75 01/13/21 08:35 Resp 18 01/13/21 07:52 BP 118/72 01/13/21 08:35 Pulse Ox 94 L 01/13/21 07:52 Weight - Most Recent: 154.811 kg I&O - Last 24 Hours: Intake & Output 01/12/21 01/13/21 01/13/21 22:59 06:59 14:59 Intake Total 890 850 Output Total 925 950 Balance -35 -100 Lab Results Last 24 Hours: Laboratory Results - last 24 hr 01/12/21 01/12/21 01/13/21 Range/Units 11:43 16:50 05:05 WBC 4.94 (4.0-11.0) K/uL RBC 4.50 (4.50-5.90) M/uL Hgb 13.6 (13.0-17.0) g/dL Hct 41.3 (38.0-50.0) % MCV 91.8 (80.0-98.0) fL MCH 30.2 (27.0-32.0) pg MCHC 32.9 (31.0-37.0) g/dL RDW Std Deviation 47.3 (28.0-62.0) fl RDW Coeff of Erik 14 (11.0-15.0) % Plt Count 166 (150-400) K/uL MPV 9.80 (7.40-12.00) fL Neut % (Auto) 57.0 (48.0-80.0) % Lymph % (Auto) 29.8 (16.0-40.0) % [place] % (Auto) 8.5 (0.0-15.0) % Eos % (Auto) 4.3 (0.0-7.0) % Baso % (Auto) 0.4 (0.0-1.5) % Neut # (Auto) 2.8 (1.4-5.7) K/uL Lymph # (Auto) 1.5 (0.6-2.4) K/uL [place] # (Auto) 0.4 (0.0-0.8) K/uL Eos # (Auto) 0.2 (0.0-0.7) K/uL Baso # (Auto) 0.0 (0.0-0.1) K/uL Nucleated RBC % 0.0 /100WBC Nucleated RBCs # 0 K/uL Sodium (136-148) mmol/L Potassium (3.5-5.1) mmol/L Chloride (98-107) mmol/L Carbon Dioxide (21.0-32.0) mmol/L BUN (7.0-18.0) mg/dL Creatinine (0.8-1.3) mg/dL Est Cr Clr Drug Dosing mL/min Estimated GFR (MDRD) ml/min Glucose (74-106) mg/dL POC Glucose 191 H 210 H (70-99) mg/dL Calcium (8.5-10.1) mg/dL Magnesium (1.8-2.4) mg/dL 01/13/21 01/13/21 Range/Units 05:05 06:32 WBC (4.0-11.0) K/uL RBC (4.50-5.90) M/uL Hgb (13.0-17.0) g/dL Hct (38.0-50.0) % MCV (80.0-98.0) fL MCH (27.0-32.0) pg MCHC (31.0-37.0) g/dL RDW Std Deviation (28.0-62.0) fl RDW Coeff of Erik (11.0-15.0) % Plt Count (150-400) K/uL MPV (7.40-12.00) fL Neut % (Auto) (48.0-80.0) % Lymph % (Auto) (16.0-40.0) % [place] % (Auto) (0.0-15.0) % Eos % (Auto) (0.0-7.0) % Baso % (Auto) (0.0-1.5) % Neut # (Auto) (1.4-5.7) K/uL Lymph # (Auto) (0.6-2.4) K/uL [place] # (Auto) (0.0-0.8) K/uL Eos # (Auto) (0.0-0.7) K/uL Baso # (Auto) (0.0-0.1) K/uL Nucleated RBC % /100WBC Nucleated RBCs # K/uL Sodium 141 (136-148) mmol/L Potassium 3.8 (3.5-5.1) mmol/L Chloride 104 (98-107) mmol/L Carbon Dioxide 28.1 (21.0-32.0) mmol/L BUN 24 H (7.0-18.0) mg/dL Creatinine 1.3 (0.8-1.3) mg/dL Est Cr Clr Drug Dosing 55.89 mL/min Estimated GFR (MDRD) 56.7 ml/min Glucose 155 H (74-106) mg/dL POC Glucose 140 H (70-99) mg/dL Calcium 8.1 L (8.5-10.1) mg/dL Magnesium 1.9 (1.8-2.4) mg/dL [place] Results Last 24 Hours: Microbiology 01/11/21 10:10 Aerobic Blood Culture - Preliminary Blood - Venous - Lab Draw NO GROWTH AFTER 1 DAY Anaerobic Blood Culture - Preliminary NO GROWTH AFTER 1 DAY 01/11/21 10:00 Aerobic Blood Culture - Preliminary Blood - Venous NO GROWTH AFTER 1 DAY Anaerobic Blood Culture - Preliminary NO GROWTH AFTER 1 DAY Med Orders - Current: Current Medications Acetaminophen (Acetaminophen 325 Mg Tab) 650 mg PO Q4H PRN PRN Reason: Pain (Mild 1-3)/fever Last Admin: 01/10/21 20:50 Dose: 650 mg Documented by: Hydrocodone Bitart/Acetaminophen (Acetaminophen/Hydrocodone 325-5 Mg Tab) 1 tab PO Q4H PRN PRN Reason: Pain Last Admin: 01/13/21 04:43 Dose: 1 tab Documented by: Albuterol/Ipratropium (Albuterol/Ipratropium 3.0-0.5 Mg/3 Ml Neb Soln) 3 ml NEB Q4HRRT PRN PRN Reason: Shortness Of Breath/wheezing Atorvastatin Calcium (Atorvastatin 20 Mg Tab) 20 mg PO BEDTIME [facility] Last Admin: 01/12/21 21:15 Dose: 20 mg Documented by: Dextrose/Water (50% Dextrose In Water 50 Ml Syringe) 50 ml IVPUSH ASDIRECTED PRN PRN Reason: Hypoglycemia Furosemide (Furosemide 40 Mg Tab) 40 mg PO BID [facility] Last Admin: 01/13/21 08:34 Dose: 40 mg Documented by: Glucagon (Glucagon,Human Recombinant 1 Mg Vial) 1 mg IM ASDIRECTED PRN PRN Reason: Hypoglycemia Heparin Sodium (Porcine) (Heparin Sodium 5,000 Units/Ml Vial) 5,000 units SUBCUT Q8H [facility] Last Admin: 01/13/21 08:37 Dose: 5,000 units Documented by: Daptomycin 920 mg/ Sodium (Chloride) 18.4 mls @ 552 mls/hr IV Q24H [facility] Last Admin: 01/12/21 11:35 Dose: 552 mls/hr Documented by: Insulin Aspart (Insulin Aspart 100 Units/Ml 3 Ml Pen) 0 unit SUBCUT TIDAC [facility]; Protocol Last Admin: 01/13/21 08:40 Dose: Not Given Documented by: Metoprolol Tartrate (Metoprolol Tartrate 25 Mg Tab) 25 mg PO DAILY [facility] Last Admin: 01/13/21 08:35 Dose: 25 mg Documented by: Ondansetron HCl (Ondansetron 4 Mg/2 Ml Sdv) 4 mg IVPUSH Q4H PRN PRN Reason: Nausea Pantoprazole Sodium (Pantoprazole 40 Mg Tab.Cr) 40 mg PO ACBREAKFAST [facility] Last Admin: 01/13/21 06:33 Dose: 40 mg Documented by: Sodium Chloride (Sodium Chloride 0.9% 2.5 Ml Syringe) 2.5 ml FLUSH ASDIRECTED PRN PRN Reason: Keep Vein Open Discontinued Medications Hydrocodone Bitart/Acetaminophen (Acetaminophen/Hydrocodone 325-10 Mg Tab) 1 tab PO Q6HR PRN PRN Reason: Pain Hydrocodone Bitart/Acetaminophen (Acetaminophen/Hydrocodone 325-5 Mg Tab) 1 tab PO Q6HR PRN PRN Reason: Pain Last Admin: 01/11/21 15:46 Dose: 1 tab Documented by: Furosemide (Furosemide 80 Mg Tab) 80 mg PO BIDDIURETIC ADRIAN Furosemide (Furosemide 80 Mg Tab) 80 mg PO BID [facility] Last Admin: 01/11/21 14:56 Dose: Not Given Documented by: Lactated Ringer's (Ringers, Lactated) 1,000 mls @ 125 mls/hr IV Q8H [facility] Last Admin: 01/10/21 12:04 Dose: Not Given Documented by: Morphine Sulfate (Morphine 2 Mg/Ml Syringe) 2 mg IVPUSH Q2H PRN PRN Reason: Pain (severe 7-10) Stop: 01/11/21 08:03 Last Admin: 01/10/21 13:30 Dose: 2 mg Documented by: - Exam Quality Assessment: DVT Prophylaxis. No: Supplemental Oxygen General: Alert, Oriented, Cooperative, No Acute Distress Lungs: Clear to Auscultation, Normal Respiratory Effort Cardiovascular: Regular Rate, Regular Rhythm GI/Abdominal Exam: Normal Bowel Sounds, Soft, Non-Tender, Other (Obese abdomen) Extremities: Pedal Edema (3+ pitting/lymphedema), Redness (Erythema to left lower extremity improving significantly no increased warmth) Skin: Warm, Dry Wound/Incisions: Healing Well Neurological: No New Focal Deficit Psy/Mental Status: Alert, Normal Affect, Normal Mood - Patient Data Lab Results Last 24 hrs: Laboratory Results - last 24 hr 01/12/21 01/12/21 01/13/21 Range/Units 11:43 16:50 05:05 WBC 4.94 (4.0-11.0) K/uL RBC 4.50 (4.50-5.90) M/uL Hgb 13.6 (13.0-17.0) g/dL Hct 41.3 (38.0-50.0) % MCV 91.8 (80.0-98.0) fL MCH 30.2 (27.0-32.0) pg MCHC 32.9 (31.0-37.0) g/dL RDW Std Deviation 47.3 (28.0-62.0) fl RDW Coeff of Erik 14 (11.0-15.0) % Plt Count 166 (150-400) K/uL MPV 9.80 (7.40-12.00) fL Neut % (Auto) 57.0 (48.0-80.0) % Lymph % (Auto) 29.8 (16.0-40.0) % [place] % (Auto) 8.5 (0.0-15.0) % Eos % (Auto) 4.3 (0.0-7.0) % Baso % (Auto) 0.4 (0.0-1.5) % Neut # (Auto) 2.8 (1.4-5.7) K/uL Lymph # (Auto) 1.5 (0.6-2.4) K/uL [place] # (Auto) 0.4 (0.0-0.8) K/uL Eos # (Auto) 0.2 (0.0-0.7) K/uL Baso # (Auto) 0.0 (0.0-0.1) K/uL Nucleated RBC % 0.0 /100WBC Nucleated RBCs # 0 K/uL Sodium (136-148) mmol/L Potassium (3.5-5.1) mmol/L Chloride (98-107) mmol/L Carbon Dioxide (21.0-32.0) mmol/L BUN (7.0-18.0) mg/dL Creatinine (0.8-1.3) mg/dL Est Cr Clr Drug Dosing mL/min Estimated GFR (MDRD) ml/min Glucose (74-106) mg/dL POC Glucose 191 H 210 H (70-99) mg/dL Calcium (8.5-10.1) mg/dL Magnesium (1.8-2.4) mg/dL 01/13/21 01/13/21 Range/Units 05:05 06:32 WBC (4.0-11.0) K/uL RBC (4.50-5.90) M/uL Hgb (13.0-17.0) g/dL Hct (38.0-50.0) % MCV (80.0-98.0) fL MCH (27.0-32.0) pg MCHC (31.0-37.0) g/dL RDW Std Deviation (28.0-62.0) fl RDW Coeff of Erik (11.0-15.0) % Plt Count (150-400) K/uL MPV (7.40-12.00) fL Neut % (Auto) (48.0-80.0) % Lymph % (Auto) (16.0-40.0) % [place] % (Auto) (0.0-15.0) % Eos % (Auto) (0.0-7.0) % Baso % (Auto) (0.0-1.5) % Neut # (Auto) (1.4-5.7) K/uL Lymph # (Auto) (0.6-2.4) K/uL [place] # (Auto) (0.0-0.8) K/uL Eos # (Auto) (0.0-0.7) K/uL Baso # (Auto) (0.0-0.1) K/uL Nucleated RBC % /100WBC Nucleated RBCs # K/uL Sodium 141 (136-148) mmol/L Potassium 3.8 (3.5-5.1) mmol/L Chloride 104 (98-107) mmol/L Carbon Dioxide 28.1 (21.0-32.0) mmol/L BUN 24 H (7.0-18.0) mg/dL Creatinine 1.3 (0.8-1.3) mg/dL Est Cr Clr Drug Dosing 55.89 mL/min Estimated GFR (MDRD) 56.7 ml/min Glucose 155 H (74-106) mg/dL POC Glucose 140 H (70-99) mg/dL Calcium 8.1 L (8.5-10.1) mg/dL Magnesium 1.9 (1.8-2.4) mg/dL Result Diagrams: 01/13/21 05:05 01/13/21 05:05 [place] Results Last 24 hrs: Microbiology 01/11/21 10:10 Aerobic Blood Culture - Preliminary Blood - Venous - Lab Draw NO GROWTH AFTER 1 DAY Anaerobic Blood Culture - Preliminary NO GROWTH AFTER 1 DAY 01/11/21 10:00 Aerobic Blood Culture - Preliminary Blood - Venous NO GROWTH AFTER 1 DAY Anaerobic Blood Culture - Preliminary NO GROWTH AFTER 1 DAY Sepsis Event Note - Evaluation Sepsis Screening Result: No Definite Risk - Focused Exam Vital Signs: Vital Signs Temp Pulse Pulse Resp BP BP Pulse Ox 01/13/21 08:35 75 118/72 01/13/21 07:52 98.4 F 70 18 102/72 94 L 01/13/21 04:46 97.8 F 72 18 114/70 98 01/13/21 00:08 98 F 79 17 109/56 L 95 - Problem List & Annotations (1) Staphylococcus epidermidis bacteremia SNOMED Code(s): 847974240114 Code(s): R78.81 - BACTEREMIA; B95.7 - OTH STAPHYLOCOCCUS THE CAUSE OF DISEASES CLASSD [id number] Status: Acute Current Visit: Yes (2) Cellulitis of left anterior lower leg SNOMED Code(s): 642483332 Code(s): L03.116 - CELLULITIS OF LEFT LOWER LIMB Status: Acute Current Visit: No (3) History of myocardial infarction SNOMED Code(s): 061442976 Code(s): I25.2 - OLD MYOCARDIAL INFARCTION Status: Chronic Current Visit: Yes (4) CHF (congestive heart failure) SNOMED Code(s): 33096075 Code(s): I50.9 - HEART FAILURE, UNSPECIFIED Status: Chronic Current Visit: Yes (5) IGOR on CPAP SNOMED Code(s): 02747908 Code(s): G47.33 - OBSTRUCTIVE SLEEP APNEA (ADULT) (PEDIATRIC); Z99.89 - DEPENDENCE ON OTHER ENABLING MACHINES AND DEVICES Status: Chronic Current Visit: Yes (6) Hypertension SNOMED Code(s): 10596853 Code(s): I10 - ESSENTIAL (PRIMARY) HYPERTENSION Status: Chronic Current Visit: Yes (7) Hyperlipidemia SNOMED Code(s): 64198638 Code(s): E78.5 - HYPERLIPIDEMIA, UNSPECIFIED Status: Chronic Current Visit: Yes (8) DM type 2 (diabetes mellitus, type 2) SNOMED Code(s): 08355362 Code(s): E11.9 - TYPE 2 DIABETES MELLITUS WITHOUT COMPLICATIONS Status: Chronic Current Visit: Yes Qualifiers: Diabetes mellitus care home insulin use: without drug and alcohol treatment specialist use Diabetes mellitus complication status: with skin complications Diabetes mellitus complication detail: with dermatitis Qualified Code(s): E11.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 (9) Chronic back pain SNOMED Code(s): 701309877 Code(s): M54.9 - DORSALGIA, UNSPECIFIED; G89.29 - OTHER CHRONIC PAIN Status: Chronic Current Visit: Yes (10) Chronic GERD SNOMED Code(s): 772514865, 272650448 Code(s): K21.9 - GASTRO-ESOPHAGEAL REFLUX DISEASE WITHOUT ESOPHAGITIS Status: Chronic Priority: Medium Current Visit: No (11) Morbid obesity with BMI of 50.0-59.9, adult SNOMED Code(s): 182656072, 98943793077934 Code(s): E66.01 - MORBID (SEVERE) OBESITY DUE TO EXCESS CALORIES; Z68.43 - BODY MASS INDEX [BMI] 50.0-59.9, ADULT Status: Chronic Current Visit: No - Problem List Review Problem List Initiated/Reviewed/Updated: Yes - Plan Plan:: This 56-year-old male admitted with cellulitis left lower extremity 1. Left lower extremity cellulitis/staph epi bacteremia Clinically patient improving leg appears to be less erythematous and patient status improved. - Continue Daptomycin, patient at max dose -Continue daptomycin for total of 5 days then transition to 5 days of Bactrim. This was discussed with patient Elevate leg Continue [place]ie wraps during the day off at night checking vascular checks twice a day. -Blood cultures obtained in [place] 4-4 positive with staph epidermidis resistant to oxacillin and erythromycin. Continue Dapto as stated above and 5 days of Bactrim -Repeat blood cultures negative x2 -Reschedule outpatient infectious disease appointment for recurrent cellulitis 2. DM type II ADA diet NovoLog sliding scale with meals Most recent A1c 7.6, well-controlled on oral antidiabetic medications. 3. HTN, CAD, CHF, IGOR Strict I's and O's, low-sodium diet, daily weights BP improved, consider restarting Lasix today. - Continue Metoprolol and Lasix 40 mg twice daily -Monitor on telemetry -Chest x-ray stable from previous admissions. -Echo pending - Continue CPAP, attempting to having family bring his in. VTE prophylaxis: Heparin GI prophylaxis: Protonix CODE STATUS: Full code Dispo Home in a.m. after last IV dose of daptomycin
[2021-01-13] MEDS: SODIUM CHLORIDE 0.9% IV SCH (11:46)
[2021-01-13] MEDS: DAPTOMYCIN IV SCH (11:46)
[2021-01-13] MEDS: Acyclovir 200 MG Cap PO SCH (14:13)
[2021-01-13] MEDS: atorvaSTATin 20 MG Tab PO SCH (20:31)
[2021-01-14] MEDS: Acyclovir 200 MG Cap PO SCH ×2 (00:01→06:10)
[2021-01-14] MEDS: Heparin Sodium 5,000 Units/ML Vial SUBCUT SCH ×2 (00:02→08:26)
[2021-01-14] MEDS: Acetaminophen/HYDROcodone 325-5 MG Tab PO PRN ×2 (04:34→08:37)
[2021-01-14] MEDS: Insulin Aspart 100 Units/ML 3 ML Pen SUBCUT SCH ×2 (07:38→12:51)
[2021-01-14] MEDS: Metoprolol Tartrate 25 MG Tab PO SCH (08:24)
[2021-01-14] MEDS: Pantoprazole 40 MG Tab.CR PO SCH (08:24)
[2021-01-14] MEDS: Furosemide 40 MG Tab PO SCH (08:26)
[2021-01-14] MEDS: SODIUM CHLORIDE 0.9% IV SCH (11:21)
[2021-01-14] MEDS: DAPTOMYCIN IV SCH (11:21)
--- NOTE | 2021-01-14 11:35 | PCM.DCSUM1 ---
Discharge Summary - Hospital Course Brief History: This 56-year-old male with past medical history of CHF, OR, CAD, sleep apnea with CPAP, type 2 diabetes and morbid obesity presented to the hospital in [place] with acute onset of fevers chills body aches and generalized fatigue. He rated pain 8 out of 10. He had a dental extraction performed on 01/04/2021. Patient reports he started having fevers chills and body aches in 01/09/2021 around 6:00 in the evening. He sought out immediate medical evaluation as he has had this in the past when he develops cellulitis. He reports he did not notice any increased redness or swelling to his lower extremities. He does report that he is supposed to see infectious disease doctor Dr. Delgado at [facility] tomorrow due to recurrent cellulitis in his left lower extremity. He denies any recent injury to left lower extremity. Denies any other skin concerns or open sores. He denies any chest pain or shortness of breath. No abdominal pain. Does report mild fevers and chills at home fevers have been subjective has not checked his temperature. He denies any nausea vomiting. He reports he is tired as he has not slept since last evening. He reports he has been eating and drinking fine at home. Denies any abdominal pain. No urinary concerns. He denies any alcohol use recreational drug use or tobacco use. In the ER in [place] mild leukocytosis noted 11,000 hemoglobin 15.6 hematocrit 47.3. Platelet count 172,000. Neutrophil count 89.5. Sodium 141 potassium 3.9 BUN 29 creatinine 1.6 which appears to be patient's baseline. Lactic acid 1.7 troponin negative UA negative Covid and influenza swab negative. Chest x-ray report pending. EKG normal sinus rhythm heart rate 99 no change from previous EKG on 08/17/2020. No acute ischemic changes noted. Patient was treated with approximately 3 L of LR IV fluids blood cultures obtained and he was treated empirically with Rocephin. Due to bed availability he was unable to be admitted in [place] patient denied transfer to other facilities but was willing to come to [place]. Patient transferred here via EMS. Upon arrival to our unit blood pressure stable 122/77 heart rate 9692% on room air 18 respirations. Hypotension noted in [place] blood pressure 99/55 map of 69. - Discharge Data Discharge Date: 01/14/21 Discharge Disposition: Home, Self-Care 01 Condition: Good - Referral to Home Health Primary Care Physician: PCP None - Discharge Diagnosis/Problem(s) (1) Staphylococcus epidermidis bacteremia SNOMED Code(s): 720625824581 ICD Code: R78.81 - BACTEREMIA; B95.7 - OTH STAPHYLOCOCCUS THE CAUSE OF DISEASES CLASSD [id number] Status: Acute (2) Cellulitis of left anterior lower leg SNOMED Code(s): 098122989 ICD Code: L03.116 - CELLULITIS OF LEFT LOWER LIMB Status: Acute (3) History of myocardial infarction SNOMED Code(s): 092760355 ICD Code: I25.2 - OLD MYOCARDIAL INFARCTION Status: Chronic (4) CHF (congestive heart failure) SNOMED Code(s): 96828315 ICD Code: I50.9 - HEART FAILURE, UNSPECIFIED Status: Chronic (5) IGOR on CPAP SNOMED Code(s): 16383419 ICD Code: G47.33 - OBSTRUCTIVE SLEEP APNEA (ADULT) (PEDIATRIC); Z99.89 - DEPENDENCE ON OTHER ENABLING MACHINES AND DEVICES Status: Chronic (6) Hypertension SNOMED Code(s): 35348758 ICD Code: I10 - ESSENTIAL (PRIMARY) HYPERTENSION Status: Chronic (7) Hyperlipidemia SNOMED Code(s): 36237703 ICD Code: E78.5 - HYPERLIPIDEMIA, UNSPECIFIED Status: Chronic (8) DM type 2 (diabetes mellitus, type 2) SNOMED Code(s): 05156501 ICD Code: E11.9 - TYPE 2 DIABETES MELLITUS WITHOUT COMPLICATIONS Status: Chronic Qualifiers: Diabetes mellitus shelter insulin use: without buttermaker continuous churn use Diabetes mellitus complication status: with skin complications Diabetes mellitus complication detail: with dermatitis Qualified Code(s): E11.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 (9) Chronic back pain SNOMED Code(s): 984209782 ICD Code: M54.9 - DORSALGIA, UNSPECIFIED; G89.29 - OTHER CHRONIC PAIN Status: Chronic (10) Chronic GERD SNOMED Code(s): 459936329, 581390284 ICD Code: K21.9 - GASTRO-ESOPHAGEAL REFLUX DISEASE WITHOUT ESOPHAGITIS Status: Chronic Priority: Medium (11) Morbid obesity with BMI of 50.0-59.9, adult SNOMED Code(s): 419634545, 89322904435748 ICD Code: E66.01 - MORBID (SEVERE) OBESITY DUE TO EXCESS CALORIES; Z68.43 - BODY MASS INDEX [BMI] 50.0-59.9, ADULT Status: Chronic - Patient Summary/Data Hospital Course: Admission diagnoses Left lower extremity cellulitis Discharge diagnoses Staph epi bacteremia Left lower extremity cellulitis Kali was admitted directly from [facility] as they had no bed availability. Patient was noted to be hypotensive with left lower extremity cellulitis within their facility. Blood cultures were obtained and he was treated with Rocephin prior to transfer. On arrival here hypotension had resolved. Patient Lasix and blood pressure medications were held for 1 day due to initial hypotension. Patient was treated aggressively with daptomycin due to previous day of recurrent cellulitis and severity of illness upon arrival. Blood cultures from [place] returned with gram-positive cocci in clusters and were identified as staph epi resistant to erythromycin and oxacillin. Patient continued to improve steadily on daptomycin repeat blood cultures from our facility have been negative x3 days. Patient has no hardware or cardiac device in place. Patient was treated for 5 days total on daptomycin 920 mg IV and was transitioned to Bactrim 2 tabs twice daily for 5 more days upon discharge. Patient left leg is significantly improved no wounds noted. Vital signs have remained stable. Patient is up ambulatory in the room. He has kept lymphedema wraps in place during the day and removed at night. Patient feeling much improved and very eager to go home today. He does have outstanding appointment with ID provider at [facility] in [place]. He was supposed to see him prior to admission due to this recurrent cellulitis. Patient is to follow-up with ID at appointment time as well as PCP in the next 1 to 2 weeks. He again is to continue Bactrim 2 tabs twice a day for 5 more days. He is to return to the ER clinic if concerns should arise sooner. - Patient Instructions Diet: Heart Healthy Diet, Diabetic Diet Activity: As Tolerated, No Strenuous Activities Driving: Do Not Drive Showering/Bathing: May Shower Notify Provider of: Fever, Increased Pain, Swelling and Redness, Drainage, Nausea and/or Vomiting - Discharge Plan *PRESCRIPTION DRUG MONITORING PROGRAM REVIEWED*: Not Applicable *COPY OF PRESCRIPTION DRUG MONITORING REPORT IN PATIENT WILL: Not Applicable Prescriptions/Med Rec: Acyclovir 400 mg PO TID #12 tablet Sulfamethoxazole/Trimethoprim [Bactrim Ds Tablet] 2 each PO BID #40 tablet Home Medications: Home Meds Dulaglutide [Trulicity] 3 mg SQ WEEKLY 11/20/19 [History] Empagliflozin [Jardiance] 25 mg PO DAILY 11/20/19 [History] Metoprolol Tartrate 25 mg PO BID 11/20/19 [History] Pantoprazole [ProTONIX] 40 mg PO DAILY 11/20/19 [History] SUMAtriptan [Imitrex] 50 mg PO DAILY PRN 11/20/19 [History] atorvaSTATin [Lipitor] 20 mg PO BEDTIME 11/20/19 [History] metFORMIN HCl [Metformin HCl] 1,000 mg PO BID 11/20/19 [History] Multivitamin 1 tab PO DAILY 08/17/20 [History] Ubidecarenone/Vitamin E [Co Q-10 50 MG Softgel] 1 cap PO DAILY 08/17/20 [History] Hydrocodone/Acetaminophen [HYDROcodone-Acetaminophen 5-325 MG] 1 each PO Q6HR PRN #10 tab 11/07/20 [Rx] Fenofibrate 160 mg PO DAILY 01/12/21 [History] Potassium Chloride 20 meq PO DAILY 01/12/21 [History] Primidone 50 mg PO BEDTIME 01/12/21 [History] Furosemide 40 mg PO BID #0 01/13/21 [Rx] Acyclovir 400 mg PO TID #12 tablet 01/14/21 [Rx] Sulfamethoxazole/Trimethoprim [Bactrim Ds Tablet] 2 each PO BID #40 tablet 01/14/21 [Rx] Oxygen Therapy Mode: Room Air Patient Handouts: Cellulitis, Adult, [id number], Sulfamethoxazole; Trimethoprim, SMX-TMP tablets, Acyclovir tablets or capsules, Bacteremia, Adult Referrals: Keegan Mora MD [Ordering Only Provider] - Pipe Reyna MD [Physician] - 01/21/21 1:30 pm - Discharge Summary/Plan Comment DC Time >30 min.: No Total # of Minutes for Discharge Time: 25 - Patient Data Vitals - Most Recent: Last Vital Signs Temp 97.9 F 01/14/21 07:40 Pulse 71 01/14/21 08:24 Resp 22 H 01/14/21 07:40 BP 100/63 01/14/21 08:24 Pulse Ox 95 01/14/21 07:40 Weight - Most Recent: 156.353 kg I&O - Last 24 hours: Intake & Output 01/13/21 01/14/21 01/14/21 22:59 06:59 14:59 Intake Total 1080 650 Output Total 0 1075 Balance 1080 -425 Lab Results - Last 24 hrs: Laboratory Results - last 24 hr 01/13/21 01/14/21 Range/Units 17:18 06:09 POC Glucose 181 H 143 H (70-99) mg/dL CED Results - Last 24 hrs: Microbiology 01/11/21 10:10 Aerobic Blood Culture - Preliminary Blood - Venous - Lab Draw NO GROWTH AFTER 3 DAYS Anaerobic Blood Culture - Preliminary NO GROWTH AFTER 3 DAYS 01/11/21 10:00 Aerobic Blood Culture - Preliminary Blood - Venous NO GROWTH AFTER 3 DAYS Anaerobic Blood Culture - Preliminary NO GROWTH AFTER 3 DAYS Med Orders - Current: Current Medications Acetaminophen (Acetaminophen 325 Mg Tab) 650 mg PO Q4H PRN PRN Reason: Pain (Mild 1-3)/fever Last Admin: 01/10/21 20:50 Dose: 650 mg Documented by: Hydrocodone Bitart/Acetaminophen (Acetaminophen/Hydrocodone 325-5 Mg Tab) 1 tab PO Q4H PRN PRN Reason: Pain Last Admin: 01/14/21 08:37 Dose: 1 tab Documented by: Acyclovir (Acyclovir 200 Mg Cap) 400 mg PO TID [facility] Last Admin: 01/14/21 06:10 Dose: 400 mg Documented by: Albuterol/Ipratropium (Albuterol/Ipratropium 3.0-0.5 Mg/3 Ml Neb Soln) 3 ml NEB Q4HRRT PRN PRN Reason: Shortness Of Breath/wheezing Atorvastatin Calcium (Atorvastatin 20 Mg Tab) 20 mg PO BEDTIME [facility] Last Admin: 01/13/21 20:31 Dose: 20 mg Documented by: Dextrose/Water (50% Dextrose In Water 50 Ml Syringe) 50 ml IVPUSH ASDIRECTED PRN PRN Reason: Hypoglycemia Furosemide (Furosemide 40 Mg Tab) 40 mg PO BID [facility] Last Admin: 01/14/21 08:26 Dose: 40 mg Documented by: Glucagon (Glucagon,Human Recombinant 1 Mg Vial) 1 mg IM ASDIRECTED PRN PRN Reason: Hypoglycemia Heparin Sodium (Porcine) (Heparin Sodium 5,000 Units/Ml Vial) 5,000 units SUBCUT Q8H [facility] Last Admin: 01/14/21 08:26 Dose: 5,000 units Documented by: Daptomycin 920 mg/ Sodium (Chloride) 18.4 mls @ 552 mls/hr IV Q24H [facility] Last Admin: 01/14/21 11:21 Dose: 552 mls/hr Documented by: Insulin Aspart (Insulin Aspart 100 Units/Ml 3 Ml Pen) 0 unit SUBCUT TIDAC [facility]; Protocol Last Admin: 01/14/21 07:38 Dose: Not Given Documented by: Metoprolol Tartrate (Metoprolol Tartrate 25 Mg Tab) 25 mg PO DAILY [facility] Last Admin: 01/14/21 08:24 Dose: 25 mg Documented by: Ondansetron HCl (Ondansetron 4 Mg/2 Ml Sdv) 4 mg IVPUSH Q4H PRN PRN Reason: Nausea Pantoprazole Sodium (Pantoprazole 40 Mg Tab.Cr) 40 mg PO ACBREAKFAST [facility] Last Admin: 01/14/21 08:24 Dose: 40 mg Documented by: Sodium Chloride (Sodium Chloride 0.9% 2.5 Ml Syringe) 2.5 ml FLUSH ASDIRECTED PRN PRN Reason: Keep Vein Open Discontinued Medications Hydrocodone Bitart/Acetaminophen (Acetaminophen/Hydrocodone 325-10 Mg Tab) 1 tab PO Q6HR PRN PRN Reason: Pain Hydrocodone Bitart/Acetaminophen (Acetaminophen/Hydrocodone 325-5 Mg Tab) 1 tab PO Q6HR PRN PRN Reason: Pain Last Admin: 01/11/21 15:46 Dose: 1 tab Documented by: Furosemide (Furosemide 80 Mg Tab) 80 mg PO BIDDIURETIC [facility] Furosemide (Furosemide 80 Mg Tab) 80 mg PO BID [facility] Last Admin: 01/11/21 14:56 Dose: Not Given Documented by: Lactated Ringer's (Ringers, Lactated) 1,000 mls @ 125 mls/hr IV Q8H [facility] Last Admin: 01/10/21 12:04 Dose: Not Given Documented by: Morphine Sulfate (Morphine 2 Mg/Ml Syringe) 2 mg IVPUSH Q2H PRN PRN Reason: Pain (severe 7-10) Stop: 01/11/21 08:03 Last Admin: 01/10/21 13:30 Dose: 2 mg Documented by:
[2021-01-14 11:55] VITALS: BP 104/76; PULSE 63
== END 2021-01-14 12:15 | disposition home or self-care (01) | DRG 383 ==
LOC: MW.MS 07:13
PROVIDERS: ADMIT Internal Medicine; ATTEND Internal Medicine
DX: L03.116 Cellulitis of left lower limb (principal); G47.33 Obstructive sleep apnea (adult) (pediatric); R78.81 Bacteremia; B95.7 Other staphylococcus as the cause of diseases classified elsewhere; I50.9 Heart failure, unspecified; E78.5 Hyperlipidemia, unspecified; E11.620 Type 2 diabetes mellitus with diabetic dermatitis; G89.29 Other chronic pain; K21.9 Gastro-esophageal reflux disease without esophagitis; E66.01 Morbid (severe) obesity due to excess calories; I25.10 Atherosclerotic heart disease of native coronary artery without angina pectoris; E11.22 Type 2 diabetes mellitus with diabetic chronic kidney disease; I13.0 Hypertensive heart and chronic kidney disease with heart failure and stage 1 through stage 4 chronic kidney disease, or unspecified chronic kidney disease; N18.30 Chronic kidney disease, stage 3 unspecified; Z68.43 Body mass index [BMI] 50.0-59.9, adult; I25.2 Old myocardial infarction; Z79.4 Long term (current) use of insulin
CPT/HCPCS: 36415; 80048; 82947; 83036; 83735; 85025; 85652; 86140; 87040; 93306; 93970; 93970-26; 94660; A9270-GY; J0878; J1644; J1815-GY; J2270